=== PATIENT | male | born 1980 | race African-American/Black ===

== ENCOUNTER 2020-09-21 20:20 | Emergency (ER) | payer OTHER ==
[~2020-09-21] VITALS: Ht 182.9 cm; Wt 95.4 kg
[~2020-09-21 20:20] MED LIST: HYDR-1179 PO
[2020-09-21 20:29] VITALS: BP 161/99
--- NOTE | 2020-09-21 20:47 | PHYS DOC ---
Past History Past Medical History: Other Additional Past Medical Histor: SEASONAL ALLERGIES Past Surgical History: Other Additional Past Surgical Histo: LEFT KNEE Alcohol Use: Rarely Drug Use: None General Adult EDM: Chief Complaint: COUGH HPI: HPI: 40-year-old male presents with 2-day history of cough and sore throat. The patient has some pain with swallowing. His throat also feels itchy. He is most concerned about his persistent cough despite cough drops. He has not been vaccinated for COVID-19. He has no known exposures. He denies fever or chills. He has no other symptoms at this time. Review of Systems: Review of Systems: Constitutional: Denies fever or chills Eyes: Denies change in visual acuity HENT: Sore throat Respiratory: Cough with whitish sputum Cardiovascular: Denies chest pain or edema GI: Denies abdominal pain, nausea, vomiting, bloody stools or diarrhea : Denies dysuria Musculoskeletal: Denies back pain or joint pain Integument: Denies rash Neurologic: Denies headache, focal weakness or sensory changes Endocrine: Denies polyuria or polydipsia Lymphatic: Denies swollen glands Psychiatric: Denies depression or anxiety Allergies: Allergies: Allergies Coded Allergies Type Severity Reaction Last Updated Verified avocado Allergy Unknown 05/30/16 Yes Physical Exam: PE: Constitutional: Well developed, well nourished, no acute distress, non-toxic appearance. [] HENT: Normocephalic, atraumatic, bilateral external ears normal, oropharynx erythematous without oral exudates, nose normal. [] Eyes: PERRLA, EOMI, conjunctiva normal, no discharge. [] Neck: Normal range of motion, no tenderness, supple, no stridor. [] Cardiovascular: Heart rate regular rhythm, no murmur [] Lungs & Thorax: Bilateral breath sounds clear to auscultation [] Abdomen: Bowel sounds normal, soft, no tenderness, no masses, no pulsatile masses. [] Skin: Warm, dry, no erythema, no rash. [] Back: No tenderness, no CVA tenderness. [] Extremities: No tenderness, no cyanosis, no clubbing, ROM intact, no edema. [] Neurologic: Alert and oriented X 3, normal motor function, normal sensory function, no focal deficits noted. [] Psychologic: Affect normal, judgement normal, mood normal. [] Current Patient Data: Vital Signs: Vital Signs Date Time Temp Pulse Resp B/P (MAP) Pulse Ox O2 Delivery O2 Flow Rate FiO2 09/21/20 20:29 98.0 97 18 161/99 (119) 99 Room Air EKG: EKG: [] Radiology/Procedures: Radiology/Procedures: [] Impressions: Chest AP portable at 2028: Reason for examination: Cough. The heart size is normal. Mediastinum is unremarkable. Lung kelly are clear. No acute bony abnormalities are seen. Impression: No acute cardiopulmonary disease. Electronically signed by: Stephani Leonard MD (09/21/2020 8:53 PM) [facility] DICTATED AND SIGNED BY: STEPHANI LEONARD MD DATE: 09/21/202051 CC: SHANTI FISHER DO; PIO MANLEY DO ~MTH0 0 Heart Score: C/O Chest Pain: N/A Risk Factors: Risk Factors: DM, Current or recent (<one month) smoker, HTN, HLP, family history of CAD, obesity. Risk Scores: Score 0 - 3: 2.5% MACE over next 6 weeks - Discharge Home Score 4 - 6: 20.3% MACE over next 6 weeks - Admit for Clinical Observation Score 7 - 10: 72.7% MACE over next 6 weeks - Early Invasive Strategies Course & Med Decision Making: Course & Med Decision Making Pertinent Labs and Imaging studies reviewed. (See chart for details) Patient's chest x-ray is negative for acute findings. His rapid strep is negative. This is likely related to his allergies. I have encouraged him to take his allergy medication. I will give him a Tessalon Perle in the ED as well as a prescription for that and codeine-based cough syrup. He is stable for discharge at this time. [] Dragon Disclaimer: Dragon Disclaimer: This electronic medical record was generated, in whole or in part, using a voice recognition dictation system. Departure Departure: Impression: Primary Impression: Cough Additional Impression: Seasonal allergies Disposition: HOME / SELF CARE / HOMELESS Condition: STABLE Referrals: SHANTI FISHER DO (PCP) Patient Instructions: Cough, Adult, Obul-jg-G[facility] Scripts Guaifenesin/Codeine Phosphate (Codeine-Guaifen 10-100 mg/5 ml) 120 Ml Liquid 5 ML PO PRN Q6HRS PRN for cough and congestion MDD 20 Milliliter(s) for 6 Days, #120 ML 0 Refills Prov: PIO MANLEY DO 09/21/20 Benzonatate (TESSALON PERLE) 100 Mg Capsule 1 CAP PO TID PRN for COUGH, #30 CAP Prov: PIO MANLEY DO 09/21/20 PIO MANLEY DO September 21, 2020 20:47
--- NOTE | 2020-09-21 20:55 | RAD ---
Chest AP portable at 2028: Reason for examination: Cough. The heart size is normal. Mediastinum is unremarkable. Lung kelly are clear. No acute bony abnormali ties are seen. Impression: No acute cardiopulmonary disease. Electronically signed by: Stephani Hernández MD (09/21/2020 8:53 PM) JANE
[2020-09-21] MEDS ORDERED: BENZ100C PO (21:24)
[2020-09-21] MEDS ORDERED: GUAI120L35 PO (21:24)
[2020-09-21] MEDS ORDERED: BENZONATATE 100 MG CAPSULE. PO ONE (21:30)
== END 2020-09-21 21:31 | disposition home or self-care (01) ==
LOC: ER 20:20
DX: J30.2 Other seasonal allergic rhinitis (principal); R05 Cough; J02.9 Acute pharyngitis, unspecified; Z91.018 Allergy to other foods
CPT/HCPCS: 71045; 87070; 87880; 99284

== ENCOUNTER 2021-04-09 11:00 | Emergency (ER) | payer OTHER ==
[~2021-04-09] VITALS: Ht 182.9 cm; Wt 98.6 kg
[~2021-04-09 11:00] MED LIST changes: +BENZ100C PO; +GUAI120L35 PO
--- NOTE | 2021-04-09 11:07 | PHYS DOC ---
Past History Past Medical History: Other Additional Past Medical Histor: SEASONAL ALLERGIES Past Surgical History: Other Additional Past Surgical Histo: LEFT KNEE Alcohol Use: Rarely Drug Use: None General Adult EDM: Chief Complaint: HYPERTENSION HPI: HPI: Patient is a 41 year old male who presents for evaluation of chronic hypertension. He has chronic hypertension and reportedly takes Micardis. He admits to missing doses relatively often, and he reports he took his dose last night. He was at work and was undergoing a "physical" in order to be able to perform certain duties. His blood pressure was noted to be elevated, so he was told to leave and go see his doctor. He contacted his primary care doctor's office and since he cannot be seen in person he elected to try to go to either urgent care, who declined him or come to the ER, so he is here now. He reports having a headache, which was not thunderclap in nature, admittedly is like other headaches he had previously. He took Tylenol and reports that the headache is improving. He denies fall, head injury, syncope, focal weakness, numbness or tingling, vision loss, neck pain or stiffness, chest pain, shortness of breath, palpitations, nausea vomiting, abdominal pain. He admits that he does not check his blood pressure very often, but when he does it is always elevated. He admits that his diastolic is more often over 100. He has not contacted his primary care physician to discuss this issue recently. Review of Systems: Review of Systems: Constitutional: Denies fever or chills Eyes: Denies change in visual acuity denies vision loss HENT: Denies nasal congestion or sore throat Respiratory: Denies cough or shortness of breath Cardiovascular: Denies chest pain or edema GI: Denies abdominal pain, nausea, vomiting Musculoskeletal: Denies back pain or joint pain Integument: Denies rash Neurologic: Admits to headache. Denies numbness, tingling, focal weakness, dizziness, vertigo, syncope. Denies head injury or trauma. Psychiatric: Denies depression or anxiety Allergies: Allergies: Allergies Coded Allergies Type Severity Reaction Last Updated Verified avocado Allergy Unknown 05/30/16 Yes Physical Exam: PE: Constitutional: Well developed, well nourished, no acute distress, non-toxic appearance. [] HENT: Normocephalic, atraumatic, bilateral external ears normal, oropharynx moist, no oral exudates, nose normal. [] Eyes: PERRL, EOMI, conjunctiva normal, no discharge. No nystagmus. Sclera are clear and anicteric, conjunctival noninjected Neck: Normal range of motion, no tenderness, supple, no stridor. No JVD. Trachea is midline. No meningismus. Cardiovascular:Heart rate regular rhythm, no murmur +2 radial and posterior tibial pulses bilaterally Lungs & Thorax: Bilateral breath sounds clear to auscultation [] Abdomen: Abdomen soft, nondistended, nontender. Skin: Warm, dry, no erythema, no rash. [] Back: No tenderness, no CVA tenderness. [] Extremities: No tenderness, no cyanosis, no clubbing, ROM intact, no edema. [] Neurologic: He is awake, alert, oriented x3. Cranial nerves II through XII grossly intact. 5 out of 5 motor strength all 4 extremities. No limb ataxia. No pronator drift. No dysmetria. Speech is clear and fluent. Sensation is grossly intact. Ambulatory with a steady gait. Nonfocal neurologic exam. Psychologic: He is mildly anxious but cooperative. [] EKG: EKG: [] Radiology/Procedures: Radiology/Procedures: IMAGING REPORT Signed PATIENT: PASTOR KWON ACCOUNT: [id number] : 1980 LOCATION: ER AGE: 41 SEX: M EXAM STATUS: REG ER ORD. PHYSICIAN: AJ CHRISTIANSON DO REASON: headache, HTN PROCEDURE: CT HEAD WO CONTRAST INDICATION: Reason: headache, HTN / Spl. Instructions: / History: COMPARISON: None. TECHNIQUE: Axial CT images obtained through the head without intravenous contrast. One or more of the following individualized dose reduction techniques were utilized for this examination: 1. Automated exposure control; 2. Adjustment of the mA and/or kV according to patient size; 3. Use of iterative reconstruction technique. FINDINGS: No intracranial hemorrhage. No significant midline shift. Ventricles and sulci are unremarkable. No acute osseous abnormality. High density at multiple vessels which can be seen with calcific ath erosclerosis. IMPRESSION: * No acute intracranial hemorrhage. * High density is seen within the vessels of both the posterior and anterior circulation. Given distribution most likely cause would be a diffuse process such as calcific atherosclerosis or increased hematocrit rather than dense vessel from thrombus which typically has a more focal appearance. * Opacification of left side of the frontal sinus which could be from congestion or sinusitis. There is also opacification of mastoid air cells nella aterally which can be seen with mastoid effusion or mastoiditis. Correlate with symptoms.. Electronically signed by: Kena Torrez MD (04/09/2021 11:49 AM) DESKTOP- [id number] DICTATED AND SIGNED BY: KENA TORREZ MD DATE: 04/09/21 1139 CC: SHANTI FISHER DO; AJ CHRISTIANSON DO ~MTH0 0 Heart Score: C/O Chest Pain: No Risk Factors: Risk Factors: DM, Current or recent (<one month) smoker, HTN, HLP, family histo ry of CAD, obesity. Risk Scores: Score 0 - 3: 2.5% MACE over next 6 weeks - Discharge Home Score 4 - 6: 20.3% MACE over next 6 weeks - Admit for Clinical Observation Score 7 - 10: 72.7% MACE over next 6 weeks - Early Invasive Strategies Course & Med Decision Making: Course & Med Decision Making Pertinent Labs and Imaging studies reviewed. (See chart for details) The patient is given p.o. ibuprofen for his headache. I have discussed the management of chronic hypertension. There is no current indication for emergent lowering of his blood pressure. CT of the head is unremarkable for any acute life-threatening process. He has a nonfocal neurologic exam. He has no other associated complaints such as chest pain or dyspnea or weakness. I recommend that he contact his PCPs office today to arrange for definitive follow-up. We will add p.o. metoprolol to his regimen. I told him to keep an appropriate log of his blood pressure readings at home. I recommended compliance with medications and diet, low-sodium diet. Return precautions are given. He verbalizes understanding. Renny Disclaimer: Renny Disclaimer: This electronic medical record was generated, in whole or in part, using a voice recognition dictation system. Departure Departure: Impression: Primary Impression: Chronic hypertension Additional Impression: Headache Disposition: LEFT AWOL/ELOPED Condition: STABLE Referrals: SHANTI FISHER DO (PCP) Patient Instructions: Hypertension Additional Instructions: Please take the medications as directed. Eat a low-sodium, heart healthy diet. Stay well-hydrated. You may take Tylenol and ibuprofen for pain. Keep a log of your blood pressure readings at home. Contact your primary care physician and arrange for follow-up. Return to the ER for chest pain, shortness of breath, fall or head injury, for focal weakness, vomiting, more severe headache pain, or for any other concerns. Please stop smoking tobacco. Scripts Metoprolol Tartrate (METOPROLOL TARTRATE) 25 Mg Tablet 1 TAB PO BID for hypertension, #60 TAB 1 Refill Prov: AJ CHRISTIANSON DO 04/09/21 AJ CHRISTIANSON DO Apr 09, 2021 11:07
[2021-04-09] MEDS ORDERED: IBUPROFEN 600 MG TABLET. PO ONE (11:30)
--- NOTE | 2021-04-09 11:52 | RAD ---
INDICATION: Reason: headache, HTN / Spl. Instructions: / History: COMPARISON: None. TECHNIQUE: Axial CT images obtained through the head without intravenous contrast. One or more of the following individualized dose reduction techniques were utilized for this examinat ion: 1. Automated exposure control; 2. Adjustment of the mA and/or kV according to patient size; 3 . Use of iterative reconstruction technique. FINDINGS: No intracranial hemorrhage. No significant midline shift. Ventricles and sulci are unremarkable. No acute osseous abnormality. High density at multiple vessels which can be seen with calcific atherosclerosis. IMPRESSION: * No acute intracranial hemorrhage. * High density is seen within the vessels of both the posterior and anterior circulation. Given dist ribution most likely cause would be a diffuse process such as calcific atherosclerosis or increased h ematocrit rather than dense vessel from thrombus which typically has a more focal appearance. * Opacification of left side of the frontal sinus which could be from congestion or sinusitis. There is also opacification of mastoid air cells bilaterally which can be seen with mastoid effusion or ma stoiditis. Correlate with symptoms.. Electronically signed by: Stuart Jara MD (04/09/2021 11:49 AM) [id number]
[2021-04-09] MEDS ORDERED: METO25TA4 PO (12:20)
[2021-04-09 13:02] VITALS: BP 196/90
== END 2021-04-09 13:04 | disposition left against medical advice (07) ==
LOC: ER 11:00
DX: I10 Essential (primary) hypertension (principal); R51.9 Headache, unspecified; Z91.018 Allergy to other foods
CPT/HCPCS: 70450; 99284-25

== ENCOUNTER 2021-06-27 19:55 | Emergency (ER) | payer OTHER ==
[~2021-06-27] VITALS: Ht 182.9 cm; Wt 98.6 kg
[~2021-06-27 19:55] MED LIST changes: +METO25TA4 PO
[2021-06-27] MEDS ORDERED: IBUPROFEN 600 MG TABLET. PO ONE (20:15)
[2021-06-27] MEDS ORDERED: ACETAMINOPHEN 500 MG TABLET PO ONE (20:15)
[2021-06-27 20:17] VITALS: BP 158/98
--- NOTE | 2021-06-27 20:19 | PHYS DOC ---
Past History Past Medical History: Other Additional Past Medical Histor: SEASONAL ALLERGIES Past Surgical History: Other Additional Past Surgical Histo: LEFT KNEE Alcohol Use: None Drug Use: None Adult General Chief Complaint Chief Complaint: SHOULDER INJURY HPI HPI Patient is a 41-year-old male who presents with left shoulder pain that is been going on about a week, pain 7 out of 10, dull and achy in nature. Denies any recent travels, traumas, injuries, fevers, chest pain, shortness of breath, abdominal pain, nausea, vomiting, diarrhea. 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 States he did not take any pain medicine today. States he has not called his primary care physician's office. Review of Systems Review of Systems Review of systems otherwise unremarkable except noted in HPI Allergies Allergies Allergies Coded Allergies Type Severity Reaction Last Updated Verified avocado Allergy Unknown 04/09/21 Yes Physical Exam Physical Exam Constitutional: Well developed, well nourished, no acute distress, non-toxic appearance. [] HENT: Normocephalic, atraumatic, Neck: Normal range of motion, Cardiovascular:Heart rate regular rhythm, no murmur [] Lungs & Thorax: Bilateral breath sounds clear to auscultation [] Back: No tenderness, Extremities: Generalized tenderness of the left shoulder with no obvious bruising, deformities. Pain with passive and active range of motion but range of motion intact and neurovascular exam intact Neurologic: Alert and oriented X 3, normal motor function, normal sensory function, no focal deficits noted. [] Psychologic: Affect normal, judgement normal, mood normal. [] EKG EKG [] Radiology/Procedures Radiology/Procedures [] Heart Score C/O Chest Pain: No Risk Factors: Risk Factors: DM, Current or recent (<one month) smoker, HTN, HLP, family history of CAD, obesity. Risk Scores: Risk Factors: DM, Current or recent (<one month) smoker, HTN, HLP, family history of CAD, obesity. Course & Med Decision Making Course & Med Decision Making Patient is a 41-year-old male who presents with left shoulder pain for a week to 10 days Vital signs not concerning. Physical exam noted above. Given Tylenol, ib uprofen, ice and sling. Imaging with no acute osseous abnormalities. Discussed findings with patient. Discussed symptom control at home. Advised to call primary care physician on Wednesday to update on ED visit and discuss need for MRI. Gave return cautions to the ED. Patient grateful, verbalized understanding and agreed with plan of discharge. [] Dragon Disclaimer Dragon Disclaimer This electronic medical record was generated, in whole or in part, using a voice recognition dictation system. Departure Departure: Impression: Primary Impression: Shoulder pain Disposition: HOME / SELF CARE / HOMELESS Condition: GOOD Referrals: SHANTI FISHER DO (PCP) Patient Instructions: RICE - Routine Care for Injuries, Shoulder Pain Additional Instructions: Thank you for coming into the emergency department tonight and allowing us to take care of you. Please read the attached information carefully to go over things we discussed. You can continue to use Tylenol, ibuprofen, ice and your sling as needed until you see your primary care physician in a changer treatment. Please call your primary care physician on Wednesday to update on your ED visit, set up a follow-up appointment and discuss need for further evaluation and treatment such as MRI. Please come back with new or concerning symptoms as discussed. MARY KATE GIORDANO MD Jun 27, 2021 20:19
--- NOTE | 2021-06-27 20:38 | RAD ---
Exam: Left shoulder 3 views INDICATION: Shoulder pain TECHNIQUE: Frontal view of the left shoulder with internal and external rotation and transscapular Y views Comparisons: None FINDINGS: Bone mineralization is normal. No acute or healed fractures. Soft tissues are unremarkable. Joint spa libertad are well-maintained. IMPRESSION: No acute osseous abnormality. Electronically signed by: Valencia Núñez MD (06/27/2021 8:36 PM) MARGI
== END 2021-06-27 21:06 | disposition home or self-care (01) ==
LOC: ER 19:55
DX: M25.512 Pain in left shoulder (principal); Z91.018 Allergy to other foods
CPT/HCPCS: 73030; 99283